=== PATIENT | male | born 2000 | race Caucasian/White ===

== ENCOUNTER 2024-02-27 15:31 | Emergency (ER) | payer OTHER, SELFPAY ==
[2024-02-27 15:40] VITALS: BP 133/73; PULSE 74; RESP 16; TEMP 36.9; O2SAT 98; BMI 23.1
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
== END 2024-02-27 17:34 | disposition left against medical advice (07) ==
PROVIDERS: Emergency Provider Emergency Medicine
DX: M25.522 Pain in left elbow (principal)
CPT/HCPCS: 73080; 99281